=== PATIENT | female | born 1950 | race Caucasian/White ===

== ENCOUNTER 2022-08-14 14:51 | Outpatient (CLI) | payer OTHER | END 2022-08-14 14:52 | disposition home or self-care (01) | LOC: BICCT 14:51 | PROVIDERS: ATTEND Nurse Practitioner Family | DX: R51.9 Headache, unspecified (principal); G89.29 Other chronic pain; Z11.1 Encounter for screening for respiratory tuberculosis; K21.9 Gastro-esophageal reflux disease without esophagitis; R10.11 Right upper quadrant pain; N20.0 Calculus of kidney; R00.2 Palpitations; M19.90 Unspecified osteoarthritis, unspecified site; M25.473 Effusion, unspecified ankle; R68.2 Dry mouth, unspecified; A04.8 Other specified bacterial intestinal infections | CPT/HCPCS: 70450 ==

== ENCOUNTER 2022-08-15 14:55 | Outpatient (CLI) | payer OTHER | END 2022-08-15 14:56 | disposition home or self-care (01) | LOC: BICRAD 14:55 | PROVIDERS: ATTEND Nurse Practitioner Family | DX: R76.11 Nonspecific reaction to tuberculin skin test without active tuberculosis (principal) | CPT/HCPCS: 71046 ==

== ENCOUNTER 2023-01-16 08:01 | Outpatient (CLI) | payer OTHER | END 2023-01-16 08:02 | disposition home or self-care (01) | LOC: BICMRI 08:01 | PROVIDERS: ATTEND Orthopaedic Surgery | DX: M47.26 Other spondylosis with radiculopathy, lumbar region (principal); M51.16 Intervertebral disc disorders with radiculopathy, lumbar region | CPT/HCPCS: 72148 ==

== ENCOUNTER 2023-05-17 08:04 | Outpatient (CLI) | payer OTHER | END 2023-05-17 08:05 | disposition home or self-care (01) | LOC: CT 08:04 | PROVIDERS: ATTEND Nurse Practitioner Family | DX: R10.84 Generalized abdominal pain (principal); R14.0 Abdominal distension (gaseous); N13.2 Hydronephrosis with renal and ureteral calculous obstruction | CPT/HCPCS: 74178; 82565 ==

== ENCOUNTER 2023-07-03 12:43 | Outpatient (CLI) | payer OTHER ==
[2023-07-03] MEDS ORDERED: Furosemide 40 MG (4 mL) VIAL ONE (13:27)
== END 2023-07-03 12:44 | disposition home or self-care (01) ==
LOC: NM 12:43
PROVIDERS: ATTEND Urology
DX: N20.2 Calculus of kidney with calculus of ureter (principal); R94.4 Abnormal results of kidney function studies
CPT/HCPCS: 78708; A4641; A9562; J1940

== ENCOUNTER 2023-07-17 10:13 | Outpatient (CLI) | payer OTHER ==
[2023-07-17 11:33] LABS: Bilirubin Neg (Negative); Blood, Urine 50 (Negative); Clarity Clear (Clear); Glucose, Urine (Dipstick) Normal (Negative); Ketone, Urine Negative (Negative); Leukocyte Negative (Negative); Nitrite Negative (Negative); Protein, Urine (Dipstick) Negative (Neg-Trace); Urobilinogen Normal mg/dL (Less than 2); pH, Urine 6.5 (5.0-9.0)
[2023-07-17 11:57] LABS: Bacteria/HPF None Seen HPF (None Seen); PTT 27.7 sec (22.0-33.0); Prothrombin Time 10.6 sec (9.5-12.1); Squamous Epithelial 0-3 HPF (0-3); WBC/HPF None Seen HPF (0-3)
[2023-07-17 12:03] LABS: Hematocrit 39.1 % (34.9-44.5); Hemoglobin 12.7 g/dL (12.0-15.5); Mean Corpuscular HGB CONC 32.5 g/dL (32.0-36.0); Mean Corpuscular Hemoglobin 29.7 pg (27.0-33.0); Mean Corpuscular Volume 91.4 fl (81.6-98.3); Mean Platelet Volume 10.1 fl (7.4-10.4); Platelet Count 177 10x3/uL (150-450); RBC Distribution Width 12.8 % (11.5-14.5); Red Blood Cell (RBC) Count 4.28 10x6/uL (3.90-5.03); White Blood Cell (WBC) Count 4.7 10x3/uL (3.5-10.5)
[2023-07-17 12:04] LABS: Anion Gap 12 mmol/L (10-20); BUN (Urea Nitrogen) 13 mg/dL (9.8-20.1); Calc. Creatinine Clearance 0 mL/min (70-130); Calcium 9.9 mg/dL (7.8-10.44); Carbon Dioxide 23 mmol/L (23-31); Chloride 110 mmol/L (98-107); Estimated GFR 87; Glucose 72 mg/dL (83-110); Potassium 4.2 mmol/L (3.5-5.1); Sodium 141 mmol/L (136-145)
== END 2023-07-17 10:14 | disposition home or self-care (01) ==
LOC: LABBT 10:13
PROVIDERS: ATTEND Urology
DX: Z01.818 Encounter for other preprocedural examination (principal); N13.5 Crossing vessel and stricture of ureter without hydronephrosis; N20.0 Calculus of kidney; M54.16 Radiculopathy, lumbar region; R35.0 Frequency of micturition
CPT/HCPCS: 80048; 81001; 85027; 85610; 85730; 87086; 93005; 93010

== ENCOUNTER 2023-08-09 08:03 | Outpatient (CLI) | payer OTHER ==
[2023-08-09 09:25] LABS: Bilirubin Neg (Negative); Blood, Urine 25 (Negative); Clarity Clear (Clear); Glucose, Urine (Dipstick) Normal (Negative); Ketone, Urine Negative (Negative); Leukocyte Negative (Negative); Nitrite Negative (Negative); Protein, Urine (Dipstick) Negative (Neg-Trace); Specific Gravity, Urine 1.005 (1.005-1.030); Urobilinogen Normal mg/dL (Less than 2)
[2023-08-09 09:44] LABS: #Monocytes 0.4 10x3/uL (0.0-1.1); #Neutrophils 1.8 10x3/uL (1.5-8.4); %Basophils 0.7 % (0.0-2.0); %Monocytes 8.8 % (0.0-10.0); %Neutrophils 44.5 % (40.0-75.0); Hematocrit 40.2 % (34.9-44.5); Hemoglobin 13.3 g/dL (12.0-15.5); Mean Corpuscular HGB CONC 33.1 g/dL (32.0-36.0); Mean Corpuscular Hemoglobin 29.4 pg (27.0-33.0); Mean Corpuscular Volume 88.7 fl (81.6-98.3); Mean Platelet Volume 9.9 fl (7.4-10.4); Platelet Count 213 10x3/uL (150-450); RBC Distribution Width 12.6 % (11.5-14.5); Red Blood Cell (RBC) Count 4.53 10x6/uL (3.90-5.03); White Blood Cell (WBC) Count 4.1 10x3/uL (3.5-10.5)
[2023-08-09 09:50] LABS: Bacteria/HPF None Seen HPF (None Seen); RBC/HPF 0-3 HPF (0-3); Squamous Epithelial 0-3 HPF (0-3); WBC/HPF None Seen HPF (0-3)
[2023-08-09 09:57] LABS: ALT (SGPT) 10 U/L (8-55); AST (SGOT) 14 U/L (5-34); Albumin 4.3 g/dL (3.4-4.8); Alkaline Phosphatase 103 U/L (40-110); Anion Gap 12 mmol/L (10-20); BUN (Urea Nitrogen) 8 mg/dL (9.8-20.1); Bilirubin, Total 0.7 mg/dL (0.2-1.2); Calc. Creatinine Clearance 0 mL/min (70-130); Calcium 9.8 mg/dL (7.8-10.44); Carbon Dioxide 24 mmol/L (23-31); Cardiac Risk 4.1 (Less than 4.5); Chloride 111 mmol/L (98-107); Cholesterol 176 mg/dl (< 200 Desired); Estimated GFR 83; Globulin 2.5 g/dL (2.4-3.5); Glucose 99 mg/dL (83-110); HDL Cholesterol 43 mg/dL (>60 Neg Risk); LDL Cholesterol, Calculated 107 mg/dL; Potassium 4.3 mmol/L (3.5-5.1); Protein, Total 6.8 g/dL (5.8-8.1); Sodium 143 mmol/L (136-145); Triglycerides 130 mg/dL (Less than 150)
[2023-08-09 10:04] LABS: PTT 29.1 sec (22.0-33.0); Prothrombin Time 10.9 sec (9.5-12.1)
[2023-08-09 10:12] LABS: Thyroid Stimulating Hormone 0.8841 uIU/mL (0.35-4.94)
== END 2023-08-09 08:04 | disposition home or self-care (01) ==
LOC: LABBT 08:03
PROVIDERS: ATTEND Urology
DX: Z01.812 Encounter for preprocedural laboratory examination (principal); N20.0 Calculus of kidney; N13.5 Crossing vessel and stricture of ureter without hydronephrosis; M54.16 Radiculopathy, lumbar region; R35.0 Frequency of micturition
CPT/HCPCS: 80053; 80061; 81001; 82306; 84443; 85025; 85610; 85730; 87086

== ENCOUNTER 2023-08-15 06:31 | Day surgery (SDC) | payer OTHER ==
[2023-08-09 08:40] VITALS: BMI 27.1
[2023-08-15] MEDS ORDERED: fentaNYL PF 100 MCG/2 ML SYRINGE ONE (06:39)
[2023-08-15] MEDS ORDERED: Rocuronium Bromide 10 MG/ML (10ML VIAL) ONE (06:39)
[2023-08-15] MEDS ORDERED: PROPOFOL 20 ML ONE (06:39)
[2023-08-15] MEDS ORDERED: Lidocaine 2% PF 5 ML VIAL ONE (06:39)
[2023-08-15] MEDS ORDERED: LevoFLOXacin D5W 500 mg (100 mL) BAG ONE (07:41)
[2023-08-15] MEDS ORDERED: Phenylephrine 10 MG/ML VIAL ONE (08:29)
[2023-08-15] MEDS ORDERED: SUGAMMADEX SODIUM 200 MG/2 ML VIAL ONE (09:22)
[2023-08-15] MEDS ORDERED: Ondansetron PF 4 MG/2 ML Vial ONE (09:25)
[2023-08-15] MEDS ORDERED: Dexamethasone 4 mg/ml Vial ONE (09:25)
[2023-08-15] MEDS ORDERED: SUCCINYLCHOLINE/SOD CL,ISO/PF 200 MG/10 ML SYRINGE FS ONE (09:55)
[2023-08-15] MEDS ORDERED: Iopamidol 30 ML ONE (10:07)
[2023-08-15] MEDS ORDERED: Oxybutynin 5 MG TAB ONE (10:34)
[2023-08-15] MEDS ORDERED: Phenazopyridine HCl 100 MG TAB ONE (10:34)
== END 2023-08-15 11:30 | disposition home or self-care (01) ==
LOC: SDC 06:31
PROVIDERS: ATTEND Urology
PROC: 0TC18ZZ Extirpation of Matter from Left Kidney, Via Natural or Artificial Opening Endoscopic (ICD-10-PCS; principal; 2023-08-15)
PROC: 0T778DZ Dilation of Left Ureter with Intraluminal Device, Via Natural or Artificial Opening Endoscopic (ICD-10-PCS; principal; 2023-08-15)
DX: N20.0 Calculus of kidney (principal); N28.89 Other specified disorders of kidney and ureter; Z87.442 Personal history of urinary calculi; Z88.0 Allergy status to penicillin
CPT/HCPCS: 74018; 74420; 82365; 88300; C1747; C1769; C2617; J1100; J1956; J2001; J2371; J2405; J2704; Q9967

== ENCOUNTER 2024-01-02 08:51 | Outpatient (CLI) | payer OTHER | END 2024-01-02 08:52 | disposition home or self-care (01) | LOC: ULT 08:51 | PROVIDERS: ATTEND Nurse Practitioner Family | DX: R74.8 Abnormal levels of other serum enzymes (principal) | CPT/HCPCS: 76705 ==

== ENCOUNTER 2024-01-08 08:14 | Outpatient (CLI) | payer OTHER | END 2024-01-08 08:15 | disposition home or self-care (01) | LOC: ULT 08:14 | PROVIDERS: ATTEND Urology | DX: N13.5 Crossing vessel and stricture of ureter without hydronephrosis (principal); N20.0 Calculus of kidney; R74.8 Abnormal levels of other serum enzymes; N26.1 Atrophy of kidney (terminal); R39.198 Other difficulties with micturition; Z98.890 Other specified postprocedural states | CPT/HCPCS: 36415; 74018; 76770; 80048; 81001; 83970; 84550; 87086 ==

== ENCOUNTER 2024-03-06 08:58 | Outpatient (CLI) | payer OTHER | END 2024-03-06 08:59 | disposition home or self-care (01) | LOC: BICCT 08:58 | PROVIDERS: ATTEND Specialist | DX: E21.3 Hyperparathyroidism, unspecified (principal) | CPT/HCPCS: 70492 ==

== ENCOUNTER 2024-05-27 08:07 | Outpatient (CLI) | payer OTHER | END 2024-05-27 08:08 | disposition home or self-care (01) | LOC: NM 08:07 | PROVIDERS: ATTEND Specialist | DX: E21.3 Hyperparathyroidism, unspecified (principal); M19.011 Primary osteoarthritis, right shoulder; M19.012 Primary osteoarthritis, left shoulder; M47.814 Spondylosis without myelopathy or radiculopathy, thoracic region | CPT/HCPCS: 78072; A9500 ==

== ENCOUNTER 2024-06-04 13:46 | Outpatient (CLI) | payer OTHER ==
[~2024-06-04 13:46] MED LIST: Magnevist 469MG/ML 20 ML VIAL ONE
== END 2024-06-04 13:47 | disposition home or self-care (01) ==
LOC: BICMRI 13:46
PROVIDERS: ATTEND Psychiatry & Neurology Neurology
DX: R51.9 Headache, unspecified (principal)
CPT/HCPCS: 70553

== ENCOUNTER 2025-02-24 08:45 | Outpatient (CLI) | payer OTHER | END 2025-02-24 08:46 | disposition home or self-care (01) | LOC: BICMAMMO 08:45 | PROVIDERS: ATTEND Nurse Practitioner Family | DX: Z12.31 Encounter for screening mammogram for malignant neoplasm of breast (principal) | CPT/HCPCS: 77063; 77067 ==

== ENCOUNTER 2025-05-26 14:59 | Outpatient (CLI) | payer OTHER | END 2025-05-26 15:00 | disposition home or self-care (01) | LOC: BICRAD 14:59 | PROVIDERS: ATTEND Nurse Practitioner Family | DX: M25.552 Pain in left hip (principal); M16.0 Bilateral primary osteoarthritis of hip; G89.29 Other chronic pain; M53.3 Sacrococcygeal disorders, not elsewhere classified; M47.816 Spondylosis without myelopathy or radiculopathy, lumbar region | CPT/HCPCS: 72120; 72220 ==